=== PATIENT | female | born 1945 | race Caucasian/White ===

== ENCOUNTER 2017-05-16 16:18 | Outpatient (CLI) | payer OTHER ==
[~2017-05-16 16:18] MED LIST: ATOR10TA68 PO; HYDR-3606 PO; LEVO25TA11 PO; LISI-600 PO; NEU100 PO; RABE20TA5 PO; ROPI0.5T PO
== END 2017-05-16 19:19 | disposition home or self-care (01) ==
LOC: SRD 16:18
PROVIDERS: ATTEND Family Medicine
DX: M19.071 Primary osteoarthritis, right ankle and foot (principal); M79.89 Other specified soft tissue disorders; M10.9 Gout, unspecified

== ENCOUNTER 2017-05-31 11:27 | Outpatient (CLI) | payer OTHER | END 2017-05-31 20:32 | disposition home or self-care (01) | LOC: SRD 11:27 | PROVIDERS: ATTEND Family Medicine | DX: M47.896 Other spondylosis, lumbar region (principal); M41.86 Other forms of scoliosis, lumbar region; I70.90 Unspecified atherosclerosis; M25.552 Pain in left hip; M25.551 Pain in right hip | CPT/HCPCS: 72110; 73521 ==

== ENCOUNTER 2020-12-07 11:55 | Outpatient (CLI) | payer OTHER ==
[~2020-12-07 11:55] MED LIST changes: -HYDR-3606 PO; +HYDR-3607 PO; -LISI-600 PO; +LISI20TA30 PO; +RABE20TA18 PO; -RABE20TA5 PO
== END 2020-12-07 20:38 | disposition home or self-care (01) ==
LOC: SRD 11:55
PROVIDERS: ATTEND Family Medicine
DX: M47.22 Other spondylosis with radiculopathy, cervical region (principal); M48.02 Spinal stenosis, cervical region; M54.2 Cervicalgia; M25.511 Pain in right shoulder
CPT/HCPCS: 72040-TC; 73030

== ENCOUNTER 2021-09-29 10:49 | Outpatient (CLI) | payer OTHER | END 2021-09-29 20:03 | disposition home or self-care (01) | LOC: SRD 10:49 | PROVIDERS: ATTEND Family Medicine | DX: Z01.818 Encounter for other preprocedural examination (principal); M47.815 Spondylosis without myelopathy or radiculopathy, thoracolumbar region; M54.9 Dorsalgia, unspecified | CPT/HCPCS: 71046-TC ==

== ENCOUNTER 2022-01-03 12:03 | Outpatient (CLI) | payer OTHER | END 2022-01-03 21:03 | disposition home or self-care (01) | LOC: SRD 12:03 | PROVIDERS: ATTEND Family Medicine | DX: Z01.818 Encounter for other preprocedural examination (principal); N81.4 Uterovaginal prolapse, unspecified; M81.0 Age-related osteoporosis without current pathological fracture; M47.814 Spondylosis without myelopathy or radiculopathy, thoracic region; J98.11 Atelectasis | CPT/HCPCS: 71046-TC ==